=== PATIENT | male | born 1970 | race Caucasian/White ===

== ENCOUNTER 2016-08-27 08:37 | Emergency (ER) | payer OTHER ==
[~2016-08-27] VITALS: Ht 170.2 cm; Wt 91.0 kg
[~2016-08-27 08:37] MED LIST: ESOM20CA PO
[2016-08-27 08:50] VITALS: TEMP 36.5; Ht 170.2 cm; Wt 91.0 kg
[2016-08-27] MEDS ORDERED: KETOROLAC TROMETHAMINE 60 MG/2 ML VIAL IM STA (08:54)
[2016-08-27] MEDS ORDERED: HYDROmorphone INJ 2 MG/ML SYR/VIAL IM STA ×2 (08:54→10:19)
--- NOTE | 2016-08-27 09:02 | EMERGENCY ROOM VISIT NOTE ---
History Report prepared by Sudheer: Rose Roland Under the Supervision of: Dr. Aurelio Knight M.D. First contact with patient: 08:46 Chief Complaint: CHEST PAIN Stated Complaint: CHEST PAINS, STERNUM IS ACTING UP AGAIN History of Present Illness The patient is a 45 year old male who presents to the Emergency Room with complaints of persistent sternal pain that began prior to arrival. Per the patient's , the patient has a history of a detached sternum. The patient states that he had lifted something too heavy 20 years ago which caused the detachment. The patient's states that the patient received a Cortizone shot to the area in the past. The patient states that he has this problem every six months. He states that he has taken ibuprofen and Tylenol for his discomfort without relief of his symptoms. The patient states that he lifted heavy tires on Friday which worsened his discomfort. He additionally notes increased pain with palpation over the sternum. Source of History: patient, spouse/significant other () Onset: prior to arrival Position: other (sternum) Timing: other (persistent) Modifying Factors (Worsening): other (palpation, heavy lifting) Review of Systems See HPI for pertinent positives & negatives. A total of 10 systems reviewed and were otherwise negative. Past Medical & Surgical Medical Problems: (1) No active medical problems Family History Cancer Diabetes mellitus Gallbladder disease Social History Smoking Status: Never Smoker Smokeless Tobacco Use: No Alcohol Use: occasionally Marital Status: Housing Status: lives with family Occupation Status: employed Current/Historical Medications Scheduled Esomeprazole Magnesium (Nexium), 20 MG PO BID Ibuprofen (Advil), 400 MG PO DAILY Scheduled PRN Oxycodone/Acetaminophen 5MG/325MG (Percocet 5MG/325MG), 1-2 TAB PO Q4H PRN for Pain Allergies Coded Allergies: Penicillins (Unverified Allergy, Mild, GI UPSET AND RASH, 08/27/16) Aspirin (Verified Allergy, Unknown, GI UPSET, 08/27/16) Codeine (Verified Allergy, Unknown, GI UPSET, 08/27/16) Physical Exam Vital Signs Date Time Temp Pulse Resp B/P Pulse Ox O2 Delivery O2 Flow Rate FiO2 08/27/16 11:12 57 15 94 08/27/16 11:01 124/92 08/27/16 10:42 47 16 95 08/27/16 10:37 55 91 08/27/16 10:30 106/83 08/27/16 10:27 127/91 08/27/16 10:07 53 91 08/27/16 10:00 127/91 08/27/16 09:55 128/95 08/27/16 09:37 49 19 128/95 95 08/27/16 08:57 53 08/27/16 08:50 36.5 56 19 145/97 98 Room Air 08/27/16 08:46 98 Room Air Physical Exam GENERAL: Patient is a healthy-appearing well-nourished HEAD: Normocephalic atraumatic EYES: Ocular movements intact pupils equal and react to light OROPHARYNX mucous membranes are moist no exudates present no erythema or edema present NECK: Supple no nuchal rigidity CHEST WALL: Exquisitely tender to the mid chest area at the sternum. CHEST: Good equal expansion LUNGS: Clear and equal to auscultation CARDIAC: Normal S1 and S2 ABDOMEN: Soft nontender no guarding BACK: No CVA tenderness EXTREMITIES: No pain upon palpation normal muscle strength in all groups no clubbing cyanosis or edema NEURO: Patient is following commands is answering questions appropriately. Alert and oriented x3 Cranial Nerves 2-12 grossly intact Medical Decision & Procedures ER Provider Diagnostic Interpretation: X-ray results as stated below per interpretation by me and the radiologist: CHEST ONE VIEW PORTABLE CLINICAL HISTORY: Chest pain localized to the xiphoid region. COMPARISON STUDY: 04/15/2011 FINDINGS: The heart is mildly enlarged. There is no failure. There is no focal pulmonary consolidation. There is a linear left basilar atelectasis/scarring. There are no pleural effusions.[ IMPRESSION: No active disease in the chest. Electronically signed by: Suraj Jara M.D. 08/27/2016 9:04 AM Dictated Date/Time: 08/27/2016 9:04 AM Medications Administered Medications (Trade) Dose Ordered Sig/Sandra Route Start Time Stop Time Status Last Admin Dose Admin Hydromorphone HCl (Dilaudid Inj) 2 mg NOW STAT IM 08/27/16 08:54 08/27/16 08:55 DC 08/27/16 09:06 2 MG Ketorolac Tromethamine (Toradol Inj) 60 mg NOW STAT IM 08/27/16 08:54 08/27/16 08:55 DC 08/27/16 09:06 60 MG Promethazine HCl (Phenergan Inj) 25 mg NOW STAT IM 08/27/16 10:19 08/27/16 10:20 DC 08/27/16 10:39 25 MG Hydromorphone HCl (Dilaudid Inj) 1 mg NOW STAT IM 08/27/16 10:34 08/27/16 10:35 DC 08/27/16 10:39 1 MG ED Course 0848: Past medical records reviewed. The patient was evaluated in room B2. A complete history and physical examination was performed. 0854: Ordered Toradol Inj 60 mg IM, Dilaudid Inj 2 mg IM. 1017: I reevaluated the patient and he is still experiencing pain. 1019: Ordered Phenergan Inj 25 mg IM. 1034: Ordered Dilaudid Inj 1 mg IM. 1100: I reevaluated the patient and he is resting comfortably. I discussed all the exam findings with him and I discussed the treatment plan. He verbalized complete understanding and agreement. He is ready to go home. Medical Decision Differential diagnosis include: Chest wall pain, rib fracture This is a 45-year-old male who presents emergency department complaining of chest wall pain. 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 The patient reaggravated this injury over the weekend by moving furniture. For this reason he is requesting pain medication. He was given IM Dilaudid as well as Toradol and then an additional dose of IM Dilaudid. Repeat examination revealed improvement patient's symptoms. I stressed the need for follow-up with pain management however he was given a temporary Percocet supply. Patient was in agreement with the treatment plan. Impression Primary Impression: Anterior chest wall pain Scribe Attestation The scribe's documentation has been prepared under my direction and personally reviewed by me in its entirety. I confirm that the note above accurately reflects all work, treatment, procedures, and medical decision making performed by me. Departure Information Dispostion Home / Self-Care Prescriptions Oxycodone/Acetaminophen 5MG/325MG (PERCOCET 5MG/325MG) Tab 1-2 TAB PO Q4H Y for Pain, #14 TAB Prov: Aurelio Knight MD 08/27/16 Referrals Rodrigo Lynch M.D. (PCP) Forms IMPORTANT VISIT INFORMATION, School Instructions, Work Instructions Patient Instructions ED Strain Chest Wall, Incentive Spirometer Dc, My [facility] Additional Instructions You received narcotic or benzodiazepene medication while in the emergency room today. Do not drive, operate heavy machinery, or drink alcohol under the influence of this medication. Take 600 mg Ibuprofen every 6 hours Take Percocet for breakthrough pain You have been examined and treated today on an emergency basis only. This is not a substitute for, or an effort to provide, complete comprehensive medical care. It is impossible to recognize and treat all injuries or illnesses in a single emergency department visit. It is therefore important that you follow up closely with Dr Lynch. Call as soon as possible for an appointment. Thank you for your time and consideration. I look forward to speaking with you again soon. Please don't hesitate to call us if you have any questions.
--- NOTE | 2016-08-27 09:07 | DIAGNOSTIC IMAGING REPORT ---
CHEST ONE VIEW PORTABLE CLINICAL HISTORY: Chest pain localized to the xiphoid region. COMPARISON STUDY: 04/15/2011 FINDINGS: The heart is mildly enlarged. There is no failure. There is no focal pulmonary consolidation. There is a linear left basilar atelectasis/scarring. There are no pleural effusions.[ IMPRESSION: No active disease in the chest. Electronically signed by: Suraj Jara M.D. 08/27/2016 9:04 AM Dictated Date/Time: 08/27/2016 9:04 AM
[2016-08-27] MEDS ORDERED: IBUP-1050 PO (09:14)
[2016-08-27] MEDS ORDERED: PROMETHAZINE HCL INJ 25 MG/ML 1 ML VIAL IM STA (10:19)
[2016-08-27] MEDS ORDERED: HYDROmorphone INJ 1 MG/ML SYR IM STA (10:34)
[2016-08-27 11:01] VITALS: BP 124/92
[2016-08-27] MEDS ORDERED: OXYC-57 PO (11:08)
[2016-08-27 11:12] VITALS: PULSE 57; O2SAT 94
--- NOTE | 2016-08-27 12:10 | Pharmacy Progress Note ---
ED Pharmacist Progress Note Date of Service: Aug 27, 2016. Background Outpatient pharmacy called requesting clarification on Percocet order - they had morphine allergy listed. Assessment Med rec tech at [facility] updated allergies during this visit. Morphine allergy not listed, but patient has GI upset to codeine. Patient has received one dose of Percocet in 2010 and was also sent home with a home pack at that time. Plan Outpatient pharmacy plans to clarify reaction to morphine with patient - will call back if need be OK to fill Percocet as prescribed, pending patient's report of morphine allergy. Case discussed w Dr. Knight.
[2016-10-30] MEDS ORDERED: ZNTT/150 PO (08:23)
[2016-12-12] MEDS ORDERED: PANT40TA PO (08:23)
== END 2016-08-27 11:47 | disposition home or self-care (01) ==
LOC: C.EDB 08:38
DX: R07.89 Other chest pain (principal); Z83.3 Family history of diabetes mellitus

== ENCOUNTER → 2016-10-25 | Outpatient (CLI) | payer OTHER ==
[~2016-10-25] MED LIST changes: +ACET-1256 PO; +DICY10CA55 PO; +IBUP-1050 PO; +OXYC-57 PO; +PANT40TA PO; +PPTBS PO; +ZNTT/150 PO
[2016-10-25 12:21] LABS: BASO % 0.2 %; BASO ABS # 0.01 K/uL (0-0.2); COMPLETE YES; EOS % 4.4 %; HEMATOCRIT 43.1 % (42-52); IG% 0.2 %; LYMPH % 19.8 %; MEAN CELL VOLUME 93.9 fL (80-100); MEAN CORPUSCULAR HEMOGLOBIN 33.1 pg (25-34); MEAN CORPUSCULAR HGB CONC 35.3 g/dl (32-36); MEAN PLATELET VOLUME 10.7 fL (7.4-10.4); MONO % 10.4 %; PLATELET COUNT 157 K/uL (130-400); RED BLOOD COUNT 4.59 M/uL (4.7-6.1); WHITE BLOOD COUNT 4.05 K/uL (4.8-10.8)
[2016-10-25 13:06] LABS: ALT/SGPT 56 U/L (12-78); BLOOD UREA NITROGEN 15 mg/dl (7-18); BUN/CREATININE RATIO 14.8 (10-20); CARBON DIOXIDE 26 mmol/L (21-32); CHLORIDE 105 mmol/L (98-107); GLUCOSE 98 mg/dl (70-99); POTASSIUM 4.2 mmol/L (3.5-5.1); SODIUM 139 mmol/L (136-145)
[2016-10-25 13:16] LABS: ALB/GLOB RATIO 1.2 (0.9-2); ALKALINE PHOSPHATASE 73 U/L (45-117); AST/SGOT 31 U/L (15-37)
== END | disposition home or self-care (01) ==
LOC: C.LABBFT 10:28
PROVIDERS: ATTEND Physician Assistant Medical
DX: K21.9 Gastro-esophageal reflux disease without esophagitis (principal)

== ENCOUNTER → 2016-11-04 | Day surgery (SDC) | payer OTHER ==
[2016-10-30 08:23] VITALS: Ht 170.2 cm; Wt 92.7 kg
[~2016-11-04] VITALS: Ht 170.2 cm; Wt 92.7 kg
[~2016-11-04] MED LIST changes: -ESOM20CA PO; +FENTANYL CITRATE INJ 50 MCG/1 ML 2 ML VIAL ONE; -IBUP-1050 PO; +LIDOCAINE HCL 2% 2 ML VIAL (20MG/ML) ONE; -OXYC-57 PO; +PROPOFOL IV EMULSION 10 MG/ML 20 ML VIAL IV ONE; +SODIUM CHLORIDE 0.9% 500ML 500 ML IV ONE
--- NOTE | 2016-11-04 14:31 | Endo History and Physical ---
History & Physical Date of Service: Nov 04, 2016. Chief Complaint: GERD, dysphagia Referring Physician: Dr. Rodrigo Lynch History of Present Illness 46 yo CM who presents for EGD secondary to GERD and dysphagia. Past Surgical History Hx Cardiac Surgery: No Hx Internal Defibrillator: No Hx Pacemaker: No Hx Abdominal Surgery: No Hx Post-Op Nausea and Vomiting: No Hx Cancer Surgery: No Hx Thoracic Surgery: No Hx Orthopedic: Yes (RT FOOT SX (HARDWARE), RT HAND REPAIR (CRUSHING INJURY)) Hx Urinary Tract Surgery: No Family History Colon CA Social History Smoking Status: Never Smoker Hx Substance Use: No Hx Alcohol Use: Yes (6 PACK DAILY) Allergies Coded Allergies: Penicillins (Verified Allergy, Mild, GI UPSET AND RASH, 11/04/16) Aspirin (Verified Allergy, Unknown, GI UPSET, 10/30/16) Codeine (Verified Allergy, Unknown, GI UPSET, 10/30/16) Current Medications Reported Home Medications Medications Dose Route/Sig Max Daily Dose Days Date Category Protonix (Pantoprazole Sodium) 40 Mg Tab 40 Mg PO QAM 10/30/16 Reported Zantac (Ranitidine HCl) 150 Mg Tab 150 Mg PO BID 10/30/16 Reported Vital Signs Weight (Kilograms): 92.73 Height (Feet): 5 Height (Inches): 7 Date Time Temp Pulse Resp B/P (MAP) Pulse Ox O2 Delivery O2 Flow Rate FiO2 11/04/16 14:07 36.6 61 18 131/83 (99) 95 Room Air Physical Exam General Appearance: WD/WN, no apparent distress Respiratory/Chest: Auscultation: breath sounds normal Cardiovascular: Heart Auscultation: RRR Abdomen: Bowel Sounds: normal Inspection & Palpation: soft, non-distended, no tenderness, guarding & rebound Assessment and Plan Assessment: 46 yo CM who presents for EGD secondary to GERD and dysphagia. Plan: Proceed with EGD.
--- NOTE | 2016-11-04 14:53 | Anesthesiology Progress Note ---
Anesthesia Post Op Note Date & Time Nov 04, 2016 at 14:53 Vital Signs Pain Intensity: 4 Vital Signs Past 12 Hours Date Time Temp Pulse Resp B/P (MAP) Pulse Ox O2 Delivery O2 Flow Rate FiO2 11/04/16 14:46 78 14 126/86 (99) 93 Room Air 11/04/16 14:07 36.6 61 18 131/83 (99) 95 Room Air Notes Mental Status: alert / awake / arousable, participated in evaluation Pt Amnestic to Procedure: Yes Nausea / Vomiting: adequately controlled Pain: adequately controlled Airway Patency, RR, SpO2: stable & adequate BP & HR: stable & adequate Hydration State: stable & adequate Anesthetic Complications: no major complications apparent
--- NOTE | 2016-11-04 14:55 | Discharge Instructions ---
Endoscopy Patient Instructions Date / Procedure(s) Performed Nov 04, 2016. EGD Allergy Information Coded Allergies: Penicillins (Verified Allergy, Mild, GI UPSET AND RASH, 11/04/16) Aspirin (Verified Allergy, Unknown, GI UPSET, 10/30/16) Codeine (Verified Allergy, Unknown, GI UPSET, 10/30/16) Discharge Date / Findings Nov 04, 2016. Gastritis s/p biopsies Mid-esophageal biopsies Medication Instructions OK to resume all medications today as prescribed Reported Home Medications Medications Dose Route/Sig Max Daily Dose Days Date Category Protonix (Pantoprazole Sodium) 40 Mg Tab 40 Mg PO QAM 10/30/16 Reported Zantac (Ranitidine HCl) 150 Mg Tab 150 Mg PO BID 10/30/16 Reported Provider Instructions Activity Restrictions - No exercising or heavy lifting for 24 hours. - Do not drink alcohol the day of the procedure. - Do not drive a car or operate machinery until the day after the procedure. - Do not make any important decisions or sign important papers in 24 hours after the procedure. Following Day: - Return to full activity which may include returning to work/school. Diet Start your diet with liquids and light foods (jello, soup, juice, toast). Then eat your usual diet if not nauseated. Treatment For Common After Affects For mild abdominal pain, bloating, or excessive gas: - Rest - Eat lightly - Lie on right side Follow-Up Information Follow-up with Dr. Rodrigo Lynch as scheduled Anesthesia Information What You Should Know You have had a procedure that required some medicine to reduce anxiety and discomfort. This treatment is called moderate sedation. After receiving the treatment, you may be sleepy, but you will be able to breathe on your own. The effects of the treatment may last for several hours. Follow these instructions along with Activity/Diet recommendations noted above: * Do NOT do anything where dizziness or clumsiness would be dangerous. * Rest quietly at home today, then you can be up and about tomorrow. * Have a responsible person stay with you the rest of today. * You may have had an I.V. today. If so, you may take the dressing off later today. Recommendations Call your doctor if: * Trouble breathing * Continuous vomiting for more than 24 hours * Temperature above 101 degrees * Severe abdominal pain or bloating * Pain not relieved by pain medicine ordered * There is increased drainage or redness from any incision * A large amount of rectal bleeding greater than 2-3 tablespoons. (If you had a polyp/s removed or have hemorrhoids, a small amount of blood - from the rectum is to be expected.) * You have any unanswered questions or concerns. IN THE EVENT OF A SERIOUS EMERGENCY, GO TO THE NEAREST EMERGENCY ROOM Your discharge instructions were prepared by provider Dallin Ward. Patient Instructions Signature Page Cuco Grossman Patient (or Guardian) Signature/Date: I have read and understand the instructions given to me by my caregivers. Caregiver/RN/Doctor Signature/Date: The above-named patient and/or guardian has received patient instructions on this date. + Original Patient Signature Page (only) stays with chart. Please make copy for patient.
--- NOTE | 2016-11-04 15:02 | GI REPORT ---
Procedure Date: 11/04/2016 2:25 PM Procedure: Upper GI endoscopy Indications: Dysphagia, Gastro-esophageal reflux disease Medicines: Monitored Anesthesia Care Complications: No immediate complications. Estimated Blood Loss: Estimated blood loss: none. Procedure: Pre-Anesthesia Assessment: - Prior to the procedure, a History and Physical was performed, and patient medications and allergies were reviewed. The patient's tolerance of previous anesthesia was also reviewed. The risks and benefits of the procedure and the sedation options and risks were discussed with the patient. All questions were answered, and informed consent was obtained. Prior Anticoagulants: The patient has taken no previous anticoagulant or antiplatelet agents. ASA Grade Assessment: II - A patient with mild systemic disease. After reviewing the risks and benefits, the patient was deemed in satisfactory condition to undergo the procedure. After obtaining informed consent, the endoscope was passed under direct vision. Throughout the procedure, the patient's blood pressure, pulse, and oxygen saturations were monitored continuously. The scope was introduced through the mouth, and advanced to the second part of duodenum. The upper GI endoscopy was accomplished without difficulty. The patient tolerated the procedure well. Findings: Mucosal changes including ringed esophagus and longitudinal furrows were found in the upper third of the esophagus and in the middle third of the esophagus. Biopsies were taken with a cold forceps for histology. Localized moderate inflammation characterized by erythema was found in the gastric antrum. Biopsies were taken with a cold forceps for histology. The examined duodenum was normal. Impression: - Esophageal mucosal changes suspicious for eosinophilic esophagitis. Biopsied. - Gastritis. Biopsied. - Normal examined duodenum. Recommendation: - Resume previous diet. - Continue present medications. - Await pathology results. - Return to primary care physician as previously scheduled. Dallin Ward, 11/04/2016 3:01:02 PM This report has been signed electronically. Note Initiated On: 11/04/2016 2:25 PM I attest to the content of the Intraoperative Record and orders documented therein, exceptions below
[2016-11-04 15:16] VITALS: BP 130/82; PULSE 52; O2SAT 94
== END | disposition home or self-care (01) ==
LOC: C.GI 12:38
PROVIDERS: ATTEND Internal Medicine
DX: K20.0 Eosinophilic esophagitis (principal); K21.9 Gastro-esophageal reflux disease without esophagitis; Z80.0 Family history of malignant neoplasm of digestive organs; Z79.899 Other long term (current) drug therapy

== ENCOUNTER 2016-12-12 21:38 | Emergency (ER) | payer OTHER ==
[~2016-12-12] VITALS: Ht 172.7 cm; Wt 90.2 kg
[~2016-12-12 21:38] MED LIST changes: -ACET-1256 PO; -DICY10CA55 PO; -FENTANYL CITRATE INJ 50 MCG/1 ML 2 ML VIAL ONE; -LIDOCAINE HCL 2% 2 ML VIAL (20MG/ML) ONE; -PPTBS PO; -PROPOFOL IV EMULSION 10 MG/ML 20 ML VIAL IV ONE; -SODIUM CHLORIDE 0.9% 500ML 500 ML IV ONE
[2016-12-12 21:42] VITALS: TEMP 36.4; Ht 172.7 cm; Wt 90.2 kg
[2016-12-12] MEDS ORDERED: SODIUM CHLORIDE 0.9% 1000ML 1,000 ML IV STA ×2 (21:59)
[2016-12-12] MEDS ORDERED: ONDANSETRON INJ 2 MG/ML 2 ML VIAL IV STA (21:59)
[2016-12-12] MEDS ORDERED: DICYCLOMINE HCL 10 MG/ML 2 ML AMP IM ONE (22:00)
[2016-12-12] MEDS ORDERED: OPTIRAY 320 IV PRN (22:15)
[2016-12-12 22:21] VITALS: O2SAT 94
[2016-12-12 22:25] LABS: BASO % 0.2 %; BASO ABS # 0.01 K/uL (0-0.2); COMPLETE YES; EOS % 1.5 %; HEMATOCRIT 44.3 % (42-52); IG% 0.2 %; LYMPH ABS # 0.62 K/uL (1.2-3.4); MEAN CELL VOLUME 92.1 fL (80-100); MEAN CORPUSCULAR HEMOGLOBIN 31.8 pg (25-34); MEAN CORPUSCULAR HGB CONC 34.5 g/dl (32-36); MEAN PLATELET VOLUME 10.6 fL (7.4-10.4); MONO % 11.9 %; NEUT % 71.2 %; PLATELET COUNT 125 K/uL (130-400); RED BLOOD COUNT 4.81 M/uL (4.7-6.1); WHITE BLOOD COUNT 4.13 K/uL (4.8-10.8)
--- NOTE | 2016-12-12 22:37 | DIAGNOSTIC IMAGING REPORT ---
CHEST ONE VIEW PORTABLE CLINICAL HISTORY: CHEST PAIN dyspnea COMPARISON STUDY: 08/27/2016 FINDINGS: Minimal left retrocardiac infiltrate. Mild stable cardiomegaly. Lungs otherwise appear clear. Plate like atelectasis left base unchanged IMPRESSION: Small parenchymal infiltrate medial left base The above report was generated using voice recognition software. It may contain grammatical, syntax or spelling errors. Electronically signed by: Jhonny Lerma M.D. 12/12/2016 10:36 PM Dictated Date/Time: 12/12/2016 10:35 PM
[2016-12-12 22:51] LABS: ALT/SGPT 64 U/L (12-78); BLOOD UREA NITROGEN 14 mg/dl (7-18); BUN/CREATININE RATIO 12.7 (10-20); CARBON DIOXIDE 27 mmol/L (21-32); CHLORIDE 106 mmol/L (98-107); GLUCOSE 98 mg/dl (70-99); MAGNESIUM 2.2 mg/dl (1.8-2.4); POTASSIUM 3.4 mmol/L (3.5-5.1); SODIUM 139 mmol/L (136-145)
[2016-12-12 22:56] LABS: ALKALINE PHOSPHATASE 83 U/L (45-117); AST/SGOT 43 U/L (15-37)
[2016-12-12] MEDS ORDERED: ACET-1256 PO (22:57)
[2016-12-12] MEDS ORDERED: PPTBS PO (22:57)
[2016-12-12] MEDS ORDERED: ALUMINUM/MAGNESIUM SUSP 30 ML UDC PO STA (23:47)
[2016-12-12] MEDS ORDERED: LIDOCAINE HCL 2% VISC SOLN 20 ML UDC PO STA (23:47)
[2016-12-12 23:53] LABS: URINE APPEARANCE CLEAR (CLEAR); URINE COLOR DK YELLOW; URINE NITRITE NEG (NEG); URINE PH 5.5 (4.5-7.5); URINE SPECIFIC GRAVITY 1.037 (1.000-1.030); UROBILINOGEN NEG (NEG); ZZUR CULT IF INDIC CLEAN CATCH NO
[2016-12-12 23:57] LABS: MANUAL MICROSCOPIC REQUIRED? NO; REVIEW REQ? NO; URINE BILIRUBIN NEG (NEG)
[2016-12-13] MEDS ORDERED: POTASSIUM CHLORIDE 10 MEQ TABCR PO STA (00:57)
[2016-12-13] MEDS ORDERED: BENTYL HOME PACK 10 MG VIAL PO ONE (01:00)
[2016-12-13] MEDS ORDERED: ONDANSETRON HOME PACK 4MG OD TAB PO ONE (01:00)
[2016-12-13] MEDS ORDERED: DICY10CA55 PO (01:06)
[2016-12-13 01:29] VITALS: BP 128/92; PULSE 60; O2SAT 93
--- NOTE | 2016-12-13 04:40 | EMERGENCY ROOM VISIT NOTE ---
History First contact with patient: 21:53 Chief Complaint: ABDOMINAL PAIN Stated Complaint: HEADACHE, BELLY IN KNOTS, DIARRHEA Nursing Triage Summary: pt c/o generalized and lower abd pain x3 days. states it is sharp/aching. associates diarrhea and nausea. denies urinary symptoms. pt has a hx of acid reflux. pt alert and oriented x4. breathing WNL. History of Present Illness The patient is a 46 year old male who presents to the Emergency Room with complaints of nausea, vomiting, diarrhea and abdominal cramping for the past 2 days. No well water. No recent antibiotics. No recent travel. No colonoscopy. Patient complains of several episodes of vomiting and diarrhea is nonbloody nonbilious non-black and tarry nonbloody in nature. Patient drinks a sixpack of beer a night. No history of DTs or seizures from not drinking. Patient complains of epigastric discomfort. Patient denies chest pain, dyspnea , fever, chills, back pain, urinary symptoms. No sick contacts. Review of Systems See HPI for pertinent positives & negatives. A total of 10 systems reviewed and were otherwise negative. Past Medical/Surgical History Medical Problems: (1) No active medical problems GERD Family History Cancer Diabetes mellitus Gallbladder disease Social History Smoking Status: Never Smoker Alcohol Use: heavy Marital Status: Housing Status: lives with family Occupation Status: employed Current/Historical Medications Scheduled Acetaminophen (Tylenol), 1,000 MG PO PRN UD Bismuth Subsalicylate (Pepto-Bismol Susp), 1 DOSE PO PRN Dicyclomine Hcl (Bentyl), 10 MG PO Q6 Pantoprazole (Protonix), 40 MG PO BID Allergies Coded Allergies: Penicillins (Verified Allergy, Mild, GI UPSET AND RASH, 11/04/16) Aspirin (Verified Allergy, Unknown, GI UPSET, 10/30/16) Codeine (Verified Allergy, Unknown, GI UPSET, 10/30/16) Physical Exam Vital Signs Date Time Temp Pulse Resp B/P (MAP) Pulse Ox O2 Delivery O2 Flow Rate FiO2 12/13/16 01:29 60 18 128/92 93 12/13/16 00:10 65 18 131/87 95 Room Air 12/12/16 23:16 62 18 125/93 94 Room Air 12/12/16 22:34 59 12/12/16 22:21 94 Room Air 12/12/16 22:21 94 Room Air 12/12/16 21:42 36.4 91 16 134/95 93 Room Air Pain Rating (0-10): 4.0 Physical Exam VITALS: Vitals are noted on the nurse's note and reviewed by myself. Vital signs stable. GENERAL: Pleasant male, in no acute distress, nondiaphoretic, well-developed well-nourished. SKIN: The skin was without rashes, erythema, edema, or bruising. There is no tenting of the skin. Capillary reflex less than 2 seconds. HEAD: Normocephalic atraumatic. EARS: External auditory canals clear, tympanic membranes pearly mendez without erythema or effusion bilaterally. EYES: Pupils equal round and reactive to light and accommodation. Conjunctivae without injection, sclerae without icterus. Extraocular movements intact. NOSE: Patent, turbinates without inflammation or discharge. No sinus tenderness. MOUTH: Mucous membranes mildly dry. Pharynx without erythema or exudate. Uvula midline. Airway patent. Tongue does not deviate. NECK: Supple without nuchal rigidity. No lymphadenopathy. No thyromegaly. Cervical spine is nontender. No JVD. HEART: Regular rate and rhythm without murmurs gallops or rubs. LUNGS: Clear to auscultation bilaterally without wheezes, rales or rhonchi. No dullness to percussion. No retractions or accessory muscle use. ABDOMEN: Positive bowel sounds x 4. Normal tympanic percussion. Soft, tender to palpation epigastric region, without masses or organomegaly. Cerrato sign negative. No guarding or rebound tenderness. No CVA tenderness MUSCULOSKELETAL: No muscle atrophy, erythema, or edema noted. NEURO: Patient was alert and oriented to person place and time. Normal sensation to light and sharp touch. No focal neurological deficits. Medical Decision & Procedures Laboratory Results 12/12/16 22:10 Red Blood Count 4.81, Mean Corpuscular Volume 92.1, Mean Corpuscular Hemoglobin 31.8, Mean Corpuscular Hemoglobin Concent 34.5, Mean Platelet Volume 10.6, Neutrophils (%) (Auto) 71.2, Lymphocytes (%) (Auto) 15.0, Monocytes (%) (Auto) 11.9, Eosinophils (%) (Auto) 1.5, Basophils (%) (Auto) 0.2, Neutrophils # (Auto ) 2.94, Lymphocytes # (Auto) 0.62, Monocytes # (Auto) 0.49, Eosinophils # (Auto ) 0.06, Basophils # (Auto) 0.01 12/12/16 22:10 Test 12/12/16 22:10 12/12/16 22:18 12/12/16 22:19 12/12/16 23:11 White Blood Count 4.13 K/uL (4.8-10.8) Red Blood Count 4.81 M/uL (4.7-6.1) Hemoglobin 15.3 g/dL (14.0-18.0) Hematocrit 44.3 % (42-52) Mean Corpuscular Volume 92.1 fL (80-100) Mean Corpuscular Hemoglobin 31.8 pg (25-34) Mean Corpuscular Hemoglobin Concent 34.5 g/dl (32-36) Platelet Count 125 K/uL (130-400) Mean Platelet Volume 10.6 fL (7.4-10.4) Neutrophils (%) (Auto) 71.2 % Lymphocytes (%) (Auto) 15.0 % Monocytes (%) (Auto) 11.9 % Eosinophils (%) (Auto) 1.5 % Basophils (%) (Auto) 0.2 % Neutrophils # (Auto) 2.94 K/uL (1.4-6.5) Lymphocytes # (Auto) 0.62 K/uL (1.2-3.4) Monocytes # (Auto) 0.49 K/uL (0.11-0.59) Eosinophils # (Auto) 0.06 K/uL (0-0.5) Basophils # (Auto) 0.01 K/uL (0-0.2) RDW Standard Deviation 42.6 fL (36.4-46.3) RDW Coefficient of Variation 12.6 % (11.5-14.5) Immature Granulocyte % (Auto) 0.2 % Immature Granulocyte # (Auto) 0.01 K/uL (0.00-0.02) Anion Gap 6.0 mmol/L (3-11) Est Creatinine Clear Calc Drug Dose 90.5 ml/min Estimated GFR () 92.2 Estimated GFR (Non- 79.5 BUN/Creatinine Ratio 12.7 (10-20) Calcium Level 9.0 mg/dl (8.5-10.1) Magnesium Level 2.2 mg/dl (1.8-2.4) Total Bilirubin 0.4 mg/dl (0.2-1) Direct Bilirubin 0.1 mg/dl (0-0.2) Aspartate Amino Transf (AST/SGOT) 43 U/L (15-37) Alanine Aminotransferase (ALT/SGPT) 64 U/L (12-78) Alkaline Phosphatase 83 U/L (45-117) Troponin I < 0.015 ng/ml (0-0.045) Total Protein 7.6 gm/dl (6.4-8.2) Albumin 3.5 gm/dl (3.4-5.0) Lipase 270 U/L (73-393) Bedside Troponin I < 0.030 ng/ml (0-0.045) Bedside Lactic Acid Venous 0.75 mmol/L (0.90-1.70) Urine Color DK YELLOW Urine Appearance CLEAR (CLEAR) Urine pH 5.5 (4.5-7.5) Urine Specific [place] 1.037 (1.000-1.030) Urine Protein 1+ (NEG) Urine Glucose (UA) NEG (NEG) Urine Ketones TRACE (NEG) Urine Occult Blood NEG (NEG) Urine Nitrite NEG (NEG) Urine Bilirubin NEG (NEG) Urine Urobilinogen NEG (NEG) Urine Leukocyte Esterase NEG (NEG) Urine WBC (Auto) 1-5 /hpf (0-5) Urine RBC (Auto) 0-4 /hpf (0-4) Urine Hyaline Casts (Auto) 1-5 /lpf (0-5) Urine Epithelial Cells (Auto) 5-10 /lpf (0-5) Urine Bacteria (Auto) NEG (NEG) Date/Time Source Procedure Growth Status 12/12/16 23:11 Stool C.difficile Toxin B Gene (PCR) - Final No C. difficile toxin B gene detected Complete Medications Administered Medications (Trade) Dose Ordered Sig/Sandra Route Start Time Stop Time Status Last Admin Dose Admin Sodium Chloride 1,000 ml @ 999 mls/hr Q1H1M STAT IV 12/12/16 21:59 12/12/16 22:59 DC 12/12/16 22:23 999 MLS/HR Sodium Chloride 1,000 ml @ 125 mls/hr Q8H STAT IV 12/12/16 21:59 12/13/16 02:32 DC 12/12/16 22:21 125 MLS/HR Ondansetron HCl (Zofran Inj) 4 mg NOW STAT IV 12/12/16 21:59 12/12/16 22:02 DC 12/12/16 22:23 4 MG Dicyclomine HCl (Bentyl Inj) 20 mg NOW ONCE IM 12/12/16 22:00 12/12/16 22:02 DC 12/12/16 22:25 20 MG Lidocaine HCl (Viscous Lidocaine 2% Soln) 10 ml NOW STAT PO 12/12/16 23:47 12/12/16 23:48 DC 12/13/16 00:06 10 ML Al Hydroxide/Mg Hydroxide (Maalox Susp) 30 ml NOW STAT PO 12/12/16 23:47 12/12/16 23:48 DC 12/13/16 00:07 30 ML Potassium Chloride (Klor-Con M10) 10 meq NOW STAT PO 12/13/16 00:57 12/13/16 00:58 DC 12/13/16 01:17 10 MEQ Dicyclomine HCl (Dicyclomine HCl 10MG Home Pack) 1 ea UD ONCE PO 12/13/16 01:00 12/13/16 01:01 DC 12/13/16 01:16 1 EA Ondansetron HCl (ZOFRAN ODT 4MG Home Pack) 1 homepack UD ONCE PO 12/13/16 01:00 12/13/16 01:01 DC 12/13/16 01:17 1 HOMEPACK ED Course Prior records/ancillary studies reviewed. Triage Nursing notes reviewed. Additional history obtained from the family. The patient's history was concerning for nausea, vomiting, diarrhea, and abdominal pain. Differential diagnosis: Etiologies such as gastroenteritis, food borne illness, infections, appendicitis , diverticulitis, inflammatory bowel disease, obstruction, GI bleed, biliary pathology, as well as others were entertained. Physical examination findings: As above. Abdominal examination revealed epigastric discomfort. Vital signs reviewed and revealed stable. ER treatment provided: IV hydration 1 L NSS. Bentyl, Zofran, GI cocktail, IV fluids On reassessment the patient felt better. Patient was tolerating p.o. intake. Diagnostics interpretation by me: The labs revealed stool culture pending. Negative C. difficile, negative troponin Imaging studies: Chest x-ray was reviewed and read by radiology. Patient is no symptoms of pneumonia. This most likely is atelectasis CT ABDOMEN & PELVIS: Dependent and bibasilar atelectasis. Fatty infiltration of the liver. Normal appendix. No bowel obstruction or definite inflammation. The descending colon and transverse colon aponte are accentuated by underdistention, but element of mild colitis cannot be entirely excluded. Small fat-containing bilateral inguinal hernias. Decompressed bladder. Radiologist: Desmond Stanley M.D. This appears to be consistent with vomiting and diarrhea mostly viral in etiology. Patient felt much better after being medicated as above. He was Tolerating fluids. His symptoms had resolved. He was advised to a clear liquid diet today and then progress as tolerated to bland diet tomorrow. He is advised follow-up family care in a few days or here in the ER sooner for abdominal pain, fevers, vomiting, worsening signs or symptoms or as needed. By the evaluation outlined above emergent etiologies such as appendicitis, diverticulitis, obstruction, cardiac sources, mesenteric ischemia, aortic pathology, inflammatory bowel disease, renal colic, PUD, biliary pathology, UTI , as well as others were deemed relatively unlikely. The pt informed about the findings as listed above. All questions were answered and pleased with the treatment. Return instructions were outlined and the patient was discharged in stable condition. Outpatient prescription management: navid graham Referral: The patient was referred to their primary care physician for follow-up in 2 to 3 days for a recheck of the current condition. Case reviewed with my attending. Medical Decision As above Impression Primary Impression: Abdominal discomfort, epigastric Additional Impression: Nausea vomiting and diarrhea Departure Information Dispostion Home / Self-Care Condition GOOD Prescriptions Dicyclomine Hcl (BENTYL) 10 Mg Cap 10 MG PO Q6, #10 CAP Prov: Karol Sol ., OLIVIER 12/13/16 Forms Call Back Authorization, HOME CARE DOCUMENTATION FORM, School Instructions, Work Instructions, Additional Instructions: no work 12/11-12/15/16 IMPORTANT VISIT INFORMATION Patient Instructions Vomit Diarrhea Self Care, [facility], ED Diet [place] Additional Instructions DO NOT drive, drink alcohol, operate machinery, or perform dangerous activities today. You were given medications in the ER that can affect your ability to safely function or operate a vehicle. Bentyl tablets 10mg: Take one every six hours as needed for abdominal cramping. Avoid alcohol, operating machinery or dangerous equipment, working on ladders or roofs, DRIVING, or situations where being under the influence may be dangerous. Zofran(odansetron) tablets 4mg: Take one and allow it to dissolve in your mouth every four to six hours as needed for nausea or vomiting. Acetaminophen(Tylenol) may be used for fever or pain. Use 1000mg every six hours as needed. Avoid using more than 3000mg in a 24 hour period. Rest and drink plenty of fluids as tolerated. Slow sips of water or sports drinks are recommended instead of large amounts all at once. Continue current medications. Once your stomach is settled start with a clear liquid diet (jello, soup broth, etc.) and then advance as tolerated. You should avoid full, heavy meals for about 24 hrs from the time your symptoms resolved. Return to the ER for persistent vomiting, fevers, abdominal pain, chest pains, difficulty breathing, black or bloody stools, worsening of your condition, or as needed. Follow up with your primary physician in 2-3 days for a recheck of your current condition. Work Instructions Additional Work Instructions: no work 12/11-12/15/16 Problem Qualifiers
--- NOTE | 2016-12-13 06:45 | DIAGNOSTIC IMAGING REPORT ---
ABD/PELVIS IV CONTRAST ONLY HISTORY: 46 years-old Male acute severe epigastric pain COMPARISON: None available TECHNIQUE: Multiple axial CT images of the abdomen and pelvis were obtained following the intravenous administration of 93 mL Optiray 320. A dose lowering technique was used consistent with the principals of JOCY. FINDINGS: The exam is mildly limited secondary to patient motion. There is mild dependent bibasilar subsegmental atelectasis present. There is no pneumoperitoneum identified. The imaged inferior cardiac chambers are unremarkable. There is diffuse fatty infiltration of the liver. The gallbladder, spleen, pancreas and adrenal glands appear normal. Kidneys, ureters and prostate are unremarkable. Urinary bladder is partially collapsed. There are small fat filled bilateral inguinal hernias present. The abdominal aorta is normal in course and caliber. No bulky adenopathy. There is no bowel obstruction. High attenuating material is seen within the cecum and appendiceal lumen without evidence of acute appendicitis. The majority of the colon is collapsed with wall thickening. This notably involves the transverse and descending colon. There may also be some mild inflammatory stranding near the splenic flexure. Soft tissues are unremarkable. The bones appear to be intact. IMPRESSION: 1. Collapse with apparent wall thickening of the colon, notably involving the descending and transverse colon may be secondary to underdistention, however colitis may have a similar appearance in the appropriate clinical setting. 2. No bowel obstruction or evidence of acute appendicitis. 3. Fatty infiltration of the liver. The above report was generated using voice recognition software. It may contain grammatical, syntax or spelling errors. Electronically signed by: Candido Estrada M.D. 12/13/2016 6:44 AM Dictated Date/Time: 12/13/2016 6:38 AM
--- NOTE | 2016-12-16 14:55 | Pharmacy Progress Note ---
ED Pharmacist Culture FollowUp Date of Service: Dec 16, 2016. Patient's stool cx is growing campy jejuni. The patient was started on Ciprofloxacin 500mg PO BID x 5 days two days ago when preliminary cx results were reported. This is adequate coverage and no further action required.
== END 2016-12-13 01:29 | disposition home or self-care (01) ==
LOC: C.EDB 21:40 → C.EDC 12-13 01:29
DX: R10.13 Epigastric pain (principal); R11.2 Nausea with vomiting, unspecified; R19.7 Diarrhea, unspecified; K21.9 Gastro-esophageal reflux disease without esophagitis; Z79.899 Other long term (current) drug therapy; Z88.0 Allergy status to penicillin; Z88.5 Allergy status to narcotic agent; Z88.6 Allergy status to analgesic agent; Z80.9 Family history of malignant neoplasm, unspecified; Z83.3 Family history of diabetes mellitus; Z83.79 Family history of other diseases of the digestive system

== ENCOUNTER 2020-06-27 10:55 | Inpatient (IN) ==
[2020-06-27] MEDS ORDERED: SODIUM CHLORIDE 0.9% 1000ML 1,000 ML IV ONE (11:31)
[2020-06-27] MEDS ORDERED: ALBUTEROL 0.083% NEBU SOLN 3 ML VIAL NEB STA (11:31)
--- NOTE | 2020-06-27 11:37 | Emergency Department Note ---
History of Present Illness General Chief complaint: Respiratory Problems Stated complaint: COVID+ TROUBLE BREATHING, UPSET STOMACH Time Seen by Provider: 06/27/20 11:03 History of Present Illness Maximum Pain Intensity: 6 This patient is a pleasant 49-year-old male who presents emergency department via wheelchair for evaluation of increasing shortness of breath that has been going on for the last several days. The patient was seen in the emergency department on 06/25/2020 for similar symptoms. He was diagnosed with Covid and sent home with oxygen. He has continued to worsen since then. He reports a nonproductive cough and mild discomfort in his chest, particularly with coughing . He denies any fever. No nausea, vomiting or diarrhea. He did lose his sense of smell. Home Medications Medication Instructions Recorded Confirmed Type atorvastatin 80 mg PO HS 06/24/20 06/27/20 History sucralfate 1 g PO BID 06/24/20 06/27/20 History azithromycin 250 mg PO HS 06/27/20 06/27/20 History dexamethasone 6 mg PO QAM 06/27/20 06/27/20 History Allergies Allergy/AdvReac Type Severity Reaction Status Date / Time Penicillins Allergy Mild GI UPSET Verified 06/27/20 11:39 AND RASH aspirin Allergy Unknown GI UPSET Verified 06/27/20 11:39 codeine Allergy Unknown GI UPSET Verified 06/27/20 11:39 Past Med/Surg History Medical History Alcohol abuse GERD (gastroesophageal reflux disease) Hyperlipidemia Family History Mother Diabetes Social History Smoking Status: Never smoker Hx Alcohol Use: Yes Alcohol type: beer Alcohol Intake Frequency: 4 or More x per/Week Alcohol Intake Frequency Comment: Drinks 12-pack of Darius Light most days. Hx Substance Use: No Preferred Language: Citizen Of [place] Communication Ability: Effective Manager Utilization Required: No Beliefs That Will Affect Care: None Current Living Situation: Spouse Feels Safe at Home: Yes Assistive Devices: Oxygen - Continuous Review of Systems A total of 10 systems reviewed and were otherwise negative Physical Exam Vital Signs Vital Signs - 24 hr 06/27/20 10:58 06/27/20 11:14 06/27/20 11:15 Temperature 36.8 C Temperature Source Temporal Artery Scan Pulse Rate 87 76 72 Pulse Rate [Right] Pulse Rate from SpO2 Sensor 76 72 Pulse Rhythm Regular Pulse Strength Normal Respiratory Rate 22 27 H 27 H Respiratory Effort / Characteristics Non-Labored Respiratory Depth Normal Respiratory Pattern Regular Blood Pressure 124/86 117/71 Blood Pressure [Right Arm] Blood Pressure Mean 98 86 Blood Pressure Mean [Right Arm] Blood Pressure Position Sitting Pulse Oximetry 92 93 94 Oxygen Delivery Method Nasal Cannula Oxygen Flow Rate 2 Sepsis Recent Fever Within 48 Hours No Sepsis New/Unexplained Change in Mental Status No Sepsis Action Taken by Nursing No Action Required Oxygen Flow Rate - Titration Pulse Oximetry Post Tiitration 06/27/20 11:20 06/27/20 11:30 06/27/20 11:31 Temperature Temperature Source Pulse Rate 75 72 72 Pulse Rate [Right] Pulse Rate from SpO2 Sensor 72 74 Pulse Rhythm Regular Pulse Strength Respiratory Rate 22 27 H 27 H Respiratory Effort / Characteristics Respiratory Depth Respiratory Pattern Blood Pressure 101/73 Blood Pressure [Right Arm] Blood Pressure Mean 82 Blood Pressure Mean [Right Arm] Blood Pressure Position Pulse Oximetry 95 93 92 Oxygen Delivery Method Nasal Cannula Oxygen Flow Rate 2.5 Sepsis Recent Fever Within 48 Hours Sepsis New/Unexplained Change in Mental Status Sepsis Action Taken by Nursing Oxygen Flow Rate - Titration 2.5 Pulse Oximetry Post Tiitration 95 06/27/20 11:44 06/27/20 12:00 06/27/20 12:01 Temperature Temperature Source Pulse Rate 68 73 Pulse Rate [Right] 63 Pulse Rate from SpO2 Sensor 69 73 Pulse Rhythm Pulse Strength Respiratory Rate 20 27 H 26 H Respiratory Effort / Characteristics Non-Labored Spontaneous Respiratory Depth Respiratory Pattern Blood Pressure 109/71 Blood Pressure [Right Arm] Blood Pressure Mean 83 Blood Pressure Mean [Right Arm] Blood Pressure Position Pulse Oximetry 94 95 95 Oxygen Delivery Method Nasal Cannula Oxygen Flow Rate 3 Sepsis Recent Fever Within 48 Hours Sepsis New/Unexplained Change in Mental Status Sepsis Action Taken by Nursing Oxygen Flow Rate - Titration Pulse Oximetry Post Tiitration 06/27/20 12:16 06/27/20 12:30 06/27/20 12:31 Temperature Temperature Source Pulse Rate 73 78 Pulse Rate [Right] 70 Pulse Rate from SpO2 Sensor 73 76 Pulse Rhythm Pulse Strength Respiratory Rate 18 27 H 23 Respiratory Effort / Characteristics Respiratory Depth Respiratory Pattern Blood Pressure 131/77 Blood Pressure [Right Arm] 109/71 Blood Pressure Mean 95 Blood Pressure Mean [Right Arm] 83 Blood Pressure Position Pulse Oximetry 96 96 97 Oxygen Delivery Method Room Air Oxygen Flow Rate Sepsis Recent Fever Within 48 Hours Sepsis New/Unexplained Change in Mental Status Sepsis Action Taken by Nursing Oxygen Flow Rate - Titration Pulse Oximetry Post Tiitration 06/27/20 12:55 06/27/20 13:00 06/27/20 13:01 Temperature Temperature Source Pulse Rate 66 65 Pulse Rate [Right] 69 Pulse Rate from SpO2 Sensor 65 66 Pulse Rhythm Pulse Strength Respiratory Rate 16 19 20 Respiratory Effort / Characteristics Respiratory Depth Respiratory Pattern Blood Pressure 125/77 Blood Pressure [Right Arm] 131/77 Blood Pressure Mean 93 Blood Pressure Mean [Right Arm] 95 Blood Pressure Position Pulse Oximetry 95 95 95 Oxygen Delivery Method Room Air Oxygen Flow Rate Sepsis Recent Fever Within 48 Hours Sepsis New/Unexplained Change in Mental Status Sepsis Action Taken by Nursing Oxygen Flow Rate - Titration Pulse Oximetry Post Tiitration 06/27/20 13:10 06/27/20 13:20 06/27/20 13:30 Temperature Temperature Source Pulse Rate 65 62 82 Pulse Rate [Right] Pulse Rate from SpO2 Sensor 65 62 80 Pulse Rhythm Pulse Strength Respiratory Rate 20 20 28 H Respiratory Effort / Characteristics Respiratory Depth Respiratory Pattern Blood Pressure 112/79 Blood Pressure [Right Arm] Blood Pressure Mean 90 Blood Pressure Mean [Right Arm] Blood Pressure Position Pulse Oximetry 94 95 95 Oxygen Delivery Method Oxygen Flow Rate Sepsis Recent Fever Within 48 Hours Sepsis New/Unexplained Change in Mental Status Sepsis Action Taken by Nursing Oxygen Flow Rate - Titration Pulse Oximetry Post Tiitration 06/27/20 13:31 06/27/20 13:40 06/27/20 13:50 Temperature Temperature Source Pulse Rate 71 62 67 Pulse Rate [Right] Pulse Rate from SpO2 Sensor 72 62 68 Pulse Rhythm Pulse Strength Respiratory Rate 29 H 21 28 H Respiratory Effort / Characteristics Respiratory Depth Respiratory Pattern Blood Pressure Blood Pressure [Right Arm] Blood Pressure Mean Blood Pressure Mean [Right Arm] Blood Pressure Position Pulse Oximetry 94 95 94 Oxygen Delivery Method Oxygen Flow Rate Sepsis Recent Fever Within 48 Hours Sepsis New/Unexplained Change in Mental Status Sepsis Action Taken by Nursing Oxygen Flow Rate - Titration Pulse Oximetry Post Tiitration 06/27/20 13:55 06/27/20 14:00 06/27/20 14:01 Temperature Temperature Source Pulse Rate 70 70 Pulse Rate [Right] 67 Pulse Rate from SpO2 Sensor 71 71 Pulse Rhythm Pulse Strength Respiratory Rate 16 32 H 26 H Respiratory Effort / Characteristics Respiratory Depth Respiratory Pattern Blood Pressure 128/84 Blood Pressure [Right Arm] 112/79 Blood Pressure Mean 98 Blood Pressure Mean [Right Arm] 90 Blood Pressure Position Pulse Oximetry 94 94 95 Oxygen Delivery Method Nasal Cannula Oxygen Flow Rate 2.5 Sepsis Recent Fever Within 48 Hours Sepsis New/Unexplained Change in Mental Status Sepsis Action Taken by Nursing Oxygen Flow Rate - Titration Pulse Oximetry Post Tiitration 06/27/20 14:10 Temperature Temperature Source Pulse Rate 74 Pulse Rate [Right] Pulse Rate from SpO2 Sensor 73 Pulse Rhythm Pulse Strength Respiratory Rate 23 Respiratory Effort / Characteristics Respiratory Depth Respiratory Pattern Blood Pressure Blood Pressure [Right Arm] Blood Pressure Mean Blood Pressure Mean [Right Arm] Blood Pressure Position Pulse Oximetry 95 Oxygen Delivery Method Oxygen Flow Rate Sepsis Recent Fever Within 48 Hours Sepsis New/Unexplained Change in Mental Status Sepsis Action Taken by Nursing Oxygen Flow Rate - Titration Pulse Oximetry Post Tiitration Constitutional WD/WN, vitals as above Fatigued Eyes EOM intact bilaterally ENMT external ear and nose normal, oropharynx normal Neck trachea midline Respiratory Decreased breath sounds at the bases bilaterally. No wheezing noted. Cardiovascular RRR, no murmur, no edema Gastrointestinal (Abdomen) normal bowel sounds, soft, nontender, no hepatosplenomegaly Musculoskeletal no cyanosis or clubbing, extremities motor strength 5/5 Skin no rashes, warm and dry Neurologic Alert and oriented x3. No focal motor deficits. Psychiatric Acting appropriately Course Course Patient was seen and examined Vital signs including blood pressure were reviewed medications list was verified with patient Labs were obtained, and a saline lock was established An order was placed for continuous cardiac monitoring. The monitor shows a rate of 78 with normal sinus rhythm. The patient was reassessed and feeling better. We discussed his results. He voiced understanding, was comfortable with the disposition. I spoke with the hospitalist group, who kindly agreed to evaluate the patient for likely inpatient management. Consultations Consultation #1: dr. maxine haines [facility] hospitalist group Administered Medications Atorvastatin Calcium (Atorvastatin 40 Mg Tab) 80 mg PO HS JACE Stop: 07/27/20 20:59 Last Admin: 06/27/20 20:27 Dose: 80 mg Documented by: [id number] Enoxaparin Sodium (Enoxaparin Inj 40 Mg/0.4 Ml Syr) 40 mg SQ Q12H JACE Stop: 07/27/20 20:59 Last Admin: 06/27/20 20:28 Dose: 40 mg Documented by: [id number] Folic Acid (Folic Acid 1 Mg Tab) 1 mg PO QAM JACE Stop: 07/27/20 16:48 Last Admin: 06/27/20 18:45 Dose: 1 mg Documented by: [id number] Potassium Chloride 40 meq/ (Sodium Chloride) 1,020 mls @ 80 mls/hr IV .[id number] JACE Stop: 07/27/20 17:59 Last Admin: 06/27/20 18:44 Dose: 80 mls/hr Documented by: [id number] Sucralfate (Sucralfate 1 Gm Tab) 1 gm PO BID JACE Stop: 07/27/20 20:59 Last Admin: 06/27/20 20:28 Dose: 1 gm Documented by: [id number] Thiamine HCl (Thiamine Hcl 100 Mg Tab) 100 mg PO QAM JACE Stop: 07/27/20 16:48 Last Admin: 06/27/20 18:45 Dose: 100 mg Documented by: [id number] Discontinued Medications Albuterol (Albuterol 0.083% Nebu Soln 3 Ml Vial) 2.5 mg NEB NOW STA Stop: 06/27/20 11:32 Last Admin: 06/27/20 11:43 Dose: 2.5 mg Documented by: [id number] Dexamethasone (Dexamethasone Sod Inj 10 Mg/Ml Vial) 10 mg IV NOW ONE Stop: 06/27/20 13:40 Last Admin: 06/27/20 13:56 Dose: 10 mg Documented by: [id number] Sodium Chloride (Nss 1000ml) 1,000 mls @ 999 mls/hr IV .[id number] ONE Stop: 06/27/20 12:31 Last Infusion: 06/27/20 13:17 Dose: 0 mls/hr Documented by: [id number] Admin: 06/27/20 12:04 Dose: 999 mls/hr Documented by: [id number] Potassium Chloride (K Moreno / Wtr) 10 meq in 100 mls @ 100 mls/hr IV ONE ONE Stop: 06/27/20 13:57 Last Infusion: 06/27/20 15:00 Dose: 0 mls/hr Documented by: [id number] Admin: 06/27/20 13:56 Dose: 100 mls/hr Documented by: [id number] Levofloxacin/Dextrose (Levaquin/D5w) 750 mg in 150 mls @ 100 mls/hr IV NOW STA Stop: 06/27/20 15:12 Last Infusion: 06/27/20 17:27 Dose: 0 mls/hr Documented by: [id number] Admin: 06/27/20 13:56 Dose: 100 mls/hr Documented by: [id number] Thiamine HCl 100 mg/ Syringe 10 mls @ 2 mls/min IV NOW STA Stop: 06/27/20 17:05 Last Admin: 06/27/20 18:44 Dose: 2 mls/min Documented by: [id number] Potassium Chloride (Potassium Chloride Crtab 20 Meq Tabcr) 40 meq PO NOW STA Stop: 06/27/20 16:50 Last Admin: 06/27/20 18:45 Dose: 40 meq Documented by: [id number] Medical Decision Making Laboratory Data Result diagrams: 06/27/20 11:13 06/27/20 11:13 Lab Results 06/27/20 06/27/20 06/27/20 Range/Units 11:13 11:13 11:13 WBC 7.82 (4.8-10.8) K/uL RBC 4.52 L (4.7-6.1) M/uL Hgb 14.5 (14.0-18.0) g/dL Hct 40.7 L (42-52) % MCV 90.0 (80-100) fL MCH 32.1 (25-34) pg MCHC 35.6 (32-36) g/dL RDW Std Deviation 40.1 (36.4-46.3) fL RDW Coeff of Rosa Elena 12.3 (11.5-14.5) % Plt Count 149 (130-400) K/uL MPV 10.8 H (7.4-10.4) fL Immature Gran % (Auto) 0.1 % Neut % (Auto) 90.2 % Lymph % (Auto) 4.6 % P[place] % (Auto) 5.0 % Eos % (Auto) 0.0 % Baso % (Auto) 0.1 % Neut # (Auto) 7.05 H (1.4-6.5) K/uL Lymph # (Auto) 0.36 L (1.2-3.4) K/uL P[place] # (Auto) 0.39 (0.11-0.59) K/uL Eos # (Auto) 0.00 (0-0.5) K/uL Baso # (Auto) 0.01 (0-0.2) K/uL Immature Gran # (Auto) 0.01 (0.00-0.02) K/uL PT 10.3 (9.0-12.0) Seconds INR 1.0 (0.9-1.1) Sodium 141 (136-145) mmol/L Potassium 3.0 L (3.5-5.1) mmol/L Chloride 108 H (98-107) mmol/L Carbon Dioxide 24 (21-32) mmol/L Anion Gap 9.0 (3-11) BUN 17 (7-18) mg/dl Creatinine 0.98 (0.6-1.4) mg/dl Est Cr Clr Drug Dosing Not Reportable Est GFR ( Amer) 103.8 Est GFR (Non-Af Amer) 89.5 BUN/Creatinine Ratio 17.8 (10-20) Glucose 123 H (70-99) mg/dl Calcium 8.7 (8.5-10.1) mg/dl Total Bilirubin 0.6 (0.2-1) mg/dl AST 73 H (15-37) U/L ALT 103 H (12-78) U/L Alkaline Phosphatase 106 (45-117) U/L Lactate Dehydrogenase (87-241) U/L Troponin I < 0.015 (0-0.045) ng/ml Total Protein 7.3 (6.4-8.2) gm/dl Albumin 3.3 L (3.4-5.0) gm/dl Globulin 4.0 (2.5-4.0) gm/dl Albumin/Globulin Ratio 0.8 L (0.9-2) Procalcitonin (0-0.5) ng/ml 06/27/20 06/27/20 Range/Units 11:13 11:13 WBC (4.8-10.8) K/uL RBC (4.7-6.1) M/uL Hgb (14.0-18.0) g/dL Hct (42-52) % MCV (80-100) fL MCH (25-34) pg MCHC (32-36) g/dL RDW Std Deviation (36.4-46.3) fL RDW Coeff of Rosa Elena (11.5-14.5) % Plt Count (130-400) K/uL MPV (7.4-10.4) fL Immature Gran % (Auto) % Neut % (Auto) % Lymph % (Auto) % P[place] % (Auto) % Eos % (Auto) % Baso % (Auto) % Neut # (Auto) (1.4-6.5) K/uL Lymph # (Auto) (1.2-3.4) K/uL P[place] # (Auto) (0.11-0.59) K/uL Eos # (Auto) (0-0.5) K/uL Baso # (Auto) (0-0.2) K/uL Immature Gran # (Auto) (0.00-0.02) K/uL PT (9.0-12.0) Seconds INR (0.9-1.1) Sodium (136-145) mmol/L Potassium (3.5-5.1) mmol/L Chloride (98-107) mmol/L Carbon Dioxide (21-32) mmol/L Anion Gap (3-11) BUN (7-18) mg/dl Creatinine (0.6-1.4) mg/dl Est Cr Clr Drug Dosing Est GFR ( Amer) Est GFR (Non-Af Amer) BUN/Creatinine Ratio (10-20) Glucose (70-99) mg/dl Calcium (8.5-10.1) mg/dl Total Bilirubin (0.2-1) mg/dl AST (15-37) U/L ALT (12-78) U/L Alkaline Phosphatase (45-117) U/L Lactate Dehydrogenase 303 H (87-241) U/L Troponin I (0-0.045) ng/ml Total Protein (6.4-8.2) gm/dl Albumin (3.4-5.0) gm/dl Globulin (2.5-4.0) gm/dl Albumin/Globulin Ratio (0.9-2) Procalcitonin 0.10 (0-0.5) ng/ml Imaging Data Attestation: I personally reviewed and interpreted this imaging study as fol lows: Radiologist's Impression: cxr . Progressive bilateral airspace opacities suggests worsening pneumonia. 2. Trace pleural effusions. ACT 112: Negative or not required by law. The above report was generated using voice recognition software. It may contain grammatical, syntax or spelling errors. Electronically signed by: Candido Estrada M.D. 06/27/2020 1:01 PM Dictated: 06/27/201258Transcribed: 06/27/201258 ECG Data Attestation: I personally reviewed and interpreted this ECG as follows: Indication: + other Rate (beats per minute): 74 Rhythm: + sinus rhythm Additional Comments: Normal sinus rhythm. Nonspecific ST normality particularly in the lateral leads. No significant change compared to 06/25/2020 MDM Narrative Differential diagnosis: Viral pneumonia, bacterial pneumonia, pneumothorax, cardiac ischemia, anemia, electrolyte abnormality, among others were considered This patient is a pleasant 49-year-old male that returns emergency department for increasing shortness of breath after being seen in the emergency department a few days ago and diagnosed with Covid. On exam, the patient did appear significantly fatigued. He was sent home with oxygen, which she typically does not wear. He was saturating in the low 90s, high 80s on 2 L. This was increased in the emergency department. A work-up was performed. There is no leukocytosis. Labs are fairly unremarkable. Given the fact that the patient has not done well as an outpatient with oxygen, I do not feel comfortable sending the patient home as his chest x-ray appears to be worsening. The patient was in agreement. He remained stable in the emergency department. He will be evaluated for likely inpatient management. Impression & Plan Pneumonia, COVID-19 Discharge Plan Visit Data Chief Complaint: Respiratory Problems Stated Complaint: COVID+ TROUBLE BREATHING, UPSET STOMACH ED Provider: Felipe Funez ED Midlevel Provider: Alivia Aguilar Discharge Problem: Pneumonia, COVID-19 Patient Disposition: Admitted As Inpatient Discharge Instructions Interventions: ED Discharge Assessment Last Done: 06/27/20 16:09
[2020-06-27 11:42] LABS: Basophils # (auto) 0.01 K/uL (0-0.2); Basophils % (auto) 0.1 %; Hematocrit (blood only) 40.7 % (42-52); Hemoglobin 14.5 g/dL (14.0-18.0); Immature Granulocytes # (auto) 0.01 K/uL (0.00-0.02); Immature Granulocytes % (auto) 0.1 %; Lymphocytes # (auto) 0.36 K/uL (1.2-3.4); Lymphocytes % (auto) 4.6 %; Mean Corpuscular Hemoglobin 32.1 pg (25-34); Mean Corpuscular Hgb Conc 35.6 g/dL (32-36); Mean Platelet Volume 10.8 fL (7.4-10.4); Monocytes # (auto) 0.39 K/uL (0.11-0.59); Neutrophils # (auto) 7.05 K/uL (1.4-6.5); Neutrophils % (auto) 90.2 %; Platelet Count 149 K/uL (130-400); RDW Coefficient of Variation 12.3 % (11.5-14.5); RDW Standard Deviation 40.1 fL (36.4-46.3); Red Blood Count 4.52 M/uL (4.7-6.1); White Blood Count 7.82 K/uL (4.8-10.8)
[2020-06-27 11:50] LABS: Alanine Aminotransferase 103 U/L (12-78); Albumin Level 3.3 gm/dl (3.4-5.0); Aspartate Aminotransferase 73 U/L (15-37); BUN Creatinine Ratio 17.8 (10-20); Blood Urea Nitrogen 17 mg/dl (7-18); Calcium 8.7 mg/dl (8.5-10.1); Carbon Dioxide 24 mmol/L (21-32); Chloride 108 mmol/L (98-107); Est GFR (African American) 103.8; Est GFR (Non-African American) 89.5; Glucose 123 mg/dl (70-99); Sodium 141 mmol/L (136-145)
[2020-06-27 11:51] LABS: Prothrombin Time 10.3 Seconds (9.0-12.0)
[2020-06-27 11:55] LABS: Albumin Globulin Ratio 0.8 (0.9-2); Alkaline Phosphatase 106 U/L (45-117); Bilirubin,Total 0.6 mg/dl (0.2-1); Total Protein 7.3 gm/dl (6.4-8.2); Troponin I < 0.015 ng/ml (0-0.045)
[2020-06-27] MEDS ORDERED: POTASSIUM CHLORIDE / WTR 10 MEQ/100 ML PLCT IV ONE (12:58)
--- NOTE | 2020-06-27 13:02 | XRay Report ---
XR chest 1V portable HISTORY: 49 years-old Male covid acute shortness of breath. COVID Positive. COMPARISON: Chest radiograph 06/24/2020 TECHNIQUE: Portable AP view of the chest FINDINGS: Cardiac silhouette is enlarged. Pulmonary vascular congestion with progressively worsened patchy bila teral airspace opacities. Trace pleural effusions. No pneumothorax. Bones appear grossly intact. IMPRESSION: 1. Progressive bilateral airspace opacities suggests worsening pneumonia. 2. Trace pleural effusions. ACT 112: Negative or not required by law. The above report was generated using voice recognition software. It may contain grammatical, syntax o r spelling errors. Electronically signed by: Candido Estrada M.D. 06/27/2020 1:01 PM
[2020-06-27] MEDS ORDERED: DEXAMETHASONE SOD INJ 10 MG/ML VIAL IV ONE (13:39)
[2020-06-27] MEDS ORDERED: levoFLOXacin/D5W 750 MG/150 ML BAG IV STA (13:43)
--- NOTE | 2020-06-27 14:30 | History & Physical Report ---
Date of Service June 27, 2020 Assessment & Plan (1) COVID-19: Initial symptoms ~06/19/2020. Positive test on 06/24/2020. - Started dexamethasone 6 mg PO daily on 06/24/2020 at first ED visit -> Continue this until 07/03/2020 for 10-day course - Not a candidate for remdesivir or plasma due to presentation time - Procalcitonin was 0.10 and he had already been on azithromycin, so I do not see need for present abx. - DuoNebs PRN - Supplemental O2 PRN -> Presently on 3.5 L with 95% SpO2 on my exam today. (2) Chest pain: Waxing/waning with Covid. No clear inciting factors. EKG from past 3 days is stable. Troponins negative on both ED visits. - Tylenol PRN for MSK pain (3) Alcohol abuse: Reports he drinks a 12-pack of Darius Light "most" days. Denies hx of withdrawals or seizures. Reports sometimes doesn't drink that much, but is vague when asked how much he drinks on the lesser days. - FELICIA scale over the next few days. (4) Hyperlipidemia: - Continue statin (5) GERD (gastroesophageal reflux disease): - Continue sucralfate (6) DVT prophylaxis: Lovenox 40 mg SQ Q12h History of Present Illness Primary Care Provider: Rodrigo Lynch MD 49yo M w/ hx of HLD, GERD, and alcohol overuse who presents with Covid-19. First felt ill ~06/19/2020 with loss of taste and smell. He also began to have shortness of breath, body aches, diarrhea, abdominal pain, chest pain, and dizziness. Not a lot of cough. He presented to the ED on 06/24 and tested positive for Covid. He was sent home on azithromycin, dexamethasone, and home O2. He presents today with generalized weakness as well as continued shortness of breath and the prior symptoms. He reports he hasn't had anything to eat in several days due to loss of appetite. Allergies Allergy/AdvReac Type Severity Reaction Status Date / Time Penicillins Allergy Mild GI UPSET Verified 06/27/20 11:39 AND RASH aspirin Allergy Unknown GI UPSET Verified 06/27/20 11:39 codeine Allergy Unknown GI UPSET Verified 06/27/20 11:39 Home Medications Medication Instructions Recorded Confirmed Type atorvastatin 80 mg PO HS 06/24/20 06/27/20 History sucralfate 1 g PO BID 06/24/20 06/27/20 History azithromycin 250 mg PO HS 06/27/20 06/27/20 History dexamethasone 6 mg PO QAM 06/27/20 06/27/20 History Past Med/Surg History Medical History GERD (gastroesophageal reflux disease) Hyperlipidemia Family History (Updated 06/27/20 @ 14:19 by Gerald Pina MD) Mother Diabetes Social History (Updated 06/27/20 @ 14:20 by Gerald Pina MD) Smoking Status: Never smoker Hx Alcohol Use: Yes Alcohol type: beer Alcohol Intake Frequency: 4 or More x per/Week Alcohol Intake Frequency Comment: Drinks 12-pack of Darius Light most days. Preferred Language: Iranian Feels Safe at Home: Yes Review of Systems Review of Systems: All systems reviewed & are unremarkable except as noted in HPI & below Physical Exam Constitutional: WD/WN, vitals as above + acute distress Eyes: EOM intact bilaterally; no conjunctival abnormality ENMT: external ear and nose normal, oropharynx normal Neck: trachea midline, no thyromegaly normal visual inspection Respiratory: + labored breathing; no respiratory distress and does not use accessory muscles Auscultation: + crackles Cardiovascular: RRR, no murmur, no edema Gastrointestinal (Abdomen): Inspection/Auscultation: abdomen normal to inspection; abdomen not distended Musculoskeletal: no cyanosis or clubbing, extremities motor strength 5/5 Skin: no rashes, warm and dry Neurologic: moves all extremities and awake Psychiatric: Orientation: alert, oriented to person and cooperative Results & Data Results & Data ([facility]) Vital Signs (Past 12 Hours) Vital Signs Temp Pulse Pulse Resp BP BP Pulse Ox 06/27/20 13:55 67 16 112/79 94 06/27/20 13:01 65 20 95 06/27/20 13:00 66 19 125/77 95 06/27/20 12:55 69 16 131/77 95 06/27/20 12:31 78 23 97 06/27/20 12:30 73 27 H 131/77 96 06/27/20 12:16 70 18 109/71 96 06/27/20 12:01 73 26 H 95 06/27/20 12:00 68 27 H 109/71 95 06/27/20 11:44 63 20 94 06/27/20 11:31 72 27 H 92 06/27/20 11:30 72 27 H 101/73 93 06/27/20 11:20 75 22 95 06/27/20 11:15 72 27 H 117/71 94 06/27/20 11:14 76 27 H 93 06/27/20 10:58 36.8 C 87 22 124/86 92 Code Status & VTE Plan VTE Prophylaxis Plan VTE Prophylaxis will be ordered: Yes PG Care Time/CCT Total # of Minutes Spent Total Time Spent with Patient: Total time spent is greater than 50% in coordination of care (as documented) at patient's floor/unit and/or counseling patient: Coding Level of Care Code 84146 Initial Inpt Care Lvl 3 Diagnoses COVID-19 U07.1 Chest pain R07.9 Chest pain type: unspecified Alcohol abuse F10.10 Hyperlipidemia E78.5 GERD (gastroesophageal reflux disease) K21.9 DVT prophylaxis Z29.9 (1) Chest pain Chest pain type: unspecified Qualified Code(s): R07.9 - Chest pain, unspecified
[2020-06-27] MEDS ORDERED: POTASSIUM CHLORIDE CRTAB 20 MEQ TABCR PO STA (16:49)
[2020-06-27] MEDS ORDERED: ONDANSETRON INJ 2 MG/ML 2 ML VIAL IV PRN (16:49)
[2020-06-27] MEDS ORDERED: LORazepam 1 MG TAB PO PRN (16:49)
[2020-06-27] MEDS ORDERED: ALBUT/IPRATROP 3MG/0.5MG NEB 3 ML VIAL NEB PRN (16:49)
--- NOTE | 2020-06-27 16:53 | Electrocardiogram Report ---
Test Reason : Blood Pressure : / mmHG Vent. Rate : 074 BPM Atrial Rate : 074 BPM P-R Int : 154 ms QRS Dur : 112 ms QT Int : 408 ms P-R-T Axes : 047 019 010 degrees QTc Int : 452 ms Normal sinus rhythm Nonspecific T wave abnormality Abnormal ECG When compared with ECG of 24-JUN-2020 11:35, Nonspecific T wave abnormality now evident in Anterior leads Confirmed by Rodrigo Kelly ([id number] on 06/27/2020 4:53:45 PM Referred By: ER Confirmed By:Sami Kelly
[2020-06-27] MEDS ORDERED: THIAMINE HCL 100 MG in SYRINGE 9 ML IV STA (17:01)
[2020-06-27] MEDS: POTASSIUM CHLORIDE 40 MEQ in SODIUM CHLORIDE 0.9% 1000ML 1,000 ML IV SCH (18:44)
[2020-06-27] MEDS: FOLIC ACID 1 MG TAB PO SCH (18:45)
[2020-06-27] MEDS: THIAMINE HCL 100 MG TAB PO SCH (18:45)
[2020-06-27] MEDS: ATORVASTATIN 40 MG TAB PO SCH (20:27)
[2020-06-27] MEDS: SUCRALFATE 1 GM TAB PO SCH (20:28)
[2020-06-27] MEDS: ENOXAPARIN INJ 40 MG/0.4 ML SYR SQ SCH (20:28)
[2020-06-28] MEDS ORDERED: MELATONIN 3 MG TAB PO PRN (00:18)
[2020-06-28] MEDS: ACETAMINOPHEN 325 MG TAB PO PRN ×2 (04:49→17:17)
[2020-06-28 06:44] LABS: Hematocrit (blood only) 37.4 % (42-52); Mean Corpuscular Hemoglobin 31.6 pg (25-34); Mean Corpuscular Hgb Conc 34.8 g/dL (32-36); Mean Corpuscular Volume 90.8 fL (80-100); Mean Platelet Volume 10.6 fL (7.4-10.4); Platelet Count 165 K/uL (130-400); RDW Coefficient of Variation 12.2 % (11.5-14.5); RDW Standard Deviation 40.8 fL (36.4-46.3); Red Blood Count 4.12 M/uL (4.7-6.1); White Blood Count 8.61 K/uL (4.8-10.8)
[2020-06-28 07:16] LABS: Albumin Globulin Ratio 0.8 (0.9-2); Albumin Level 2.7 gm/dl (3.4-5.0); BUN Creatinine Ratio 21.6 (10-20); Bilirubin,Total 0.6 mg/dl (0.2-1); Calcium 8.7 mg/dl (8.5-10.1); Creatinine Clr Calc Pharmacy 131.8 ml/min; Est GFR (African American) 121.4; Est GFR (Non-African American) 104.7; Globulin 3.5 gm/dl (2.5-4.0); Magnesium 2.1 mg/dl (1.8-2.4); Phosphorus 2.4 mg/dl (2.5-4.9); Potassium 3.5 mmol/L (3.5-5.1); Total Protein 6.2 gm/dl (6.4-8.2)
[2020-06-28] MEDS: THIAMINE HCL 100 MG TAB PO SCH (08:55)
[2020-06-28] MEDS: ENOXAPARIN INJ 40 MG/0.4 ML SYR SQ SCH ×2 (08:55→21:56)
[2020-06-28] MEDS: SUCRALFATE 1 GM TAB PO SCH ×2 (08:55→21:57)
[2020-06-28] MEDS: FOLIC ACID 1 MG TAB PO SCH (08:55)
[2020-06-28] MEDS: dexAMETHasone 4 MG TAB PO SCH (08:55)
[2020-06-28] MEDS: POTASSIUM CHLORIDE 40 MEQ in SODIUM CHLORIDE 0.9% 1000ML 1,000 ML IV SCH ×2 (08:56→23:43)
--- NOTE | 2020-06-28 09:14 | Hospitalist Progress Note ---
Date of Service June 28, 2020 Assessment & Plan (1) COVID-19: COVID-19 pneumonia . initial symptoms ~06/19/2020. Positive test on 06/24/2020. - Started dexamethasone 6 mg PO daily on 06/24/2020 at first ED visit -> Continue this until 07/03/2020 for 10-day course - Procalcitonin was 0.10 and he had already been on azithromycin, so admitting doctor did not choose to continue any antibiotics. - DuoNebs PRN - Supplemental O2 PRN -> Presently on 3.5 L with 95% SpO2 on my exam today. COVID-19 related diarrhea check stool cultures and C. difficile however likely from Covid (2) Chest pain: Waxing/waning with Covid. No clear inciting factors. EKG from past 3 days is stable. Troponins negative on both ED visits. - Tylenol PRN for MSK pain (3) Alcohol abuse: Reports he drinks a 12-pack of Darius Light "most" days. Denies hx of withdrawals or seizures. Reports sometimes doesn't drink that much, but is vague when asked how much he drinks on the lesser days. - FELICIA scale over the next few days. Exhibiting signs or symptoms of alcohol withdrawal at this time (4) Hyperlipidemia: - Continue statin (5) GERD (gastroesophageal reflux disease): - Continue sucralfate (6) DVT prophylaxis: Lovenox 40 mg SQ Q12h higher dose based on thrombophilia of Covid infection Admission and Anticipated Discharge Date Admission Date: June 27, 2020 Subjective Patient is dyspneic he is complaining of diarrhea he has nonproductive cough is not exhibiting any signs of alcohol withdrawal or tremulousness and says that he has not had issues like this in the past when he stopped drinking. He remains on 6 L nasal cannula saturating in the low 90s. His chest x-ray is reviewed and has only mild Covid changes at this point time Review of Systems Review of Systems: Moderate respiratory distress and fatigue no headache, blurry or double vision no speech or swallowing issues no chest pain, pressure or palpitations Baseline shortness of breath worse with exertion nonproductive cough no abdominal pain, nausea or vomiting, he is complaining is a persistent diarrhe a no dysuria, hematuria or frequency no focal joint pain or swelling no back pain, CVA tenderness or radicular pain no bruising, bleeding or rashes no focal signs of weakness or numbness or altered sensation no complaints of anxiety or depression.. Physical Exam Physical Exam: The patient appeared well nourished and normally developed. Vital signs as documented. Head exam is normocephalic atraumatic no scleral icterus Neck is without JVD, thyromegaly, or carotid bruits. Lungs are coarse rales heard bibasilarly left greater than right Cardiac exam, Rhythm is regular.. No murmurs, rubs or gallops. Abdominal exam reveals hyperactive bowel sounds, soft non tender, no masses Extremities are nonedematous and both pedal pulses are present Neurologic exam is alert and oriented, no focal loss of strength or sensation Skin is without bruises or rashes Psychologically is without concerns for anxiety or depression Results & Data Results & Data ([facility]) Vital Signs (Past 12 Hours) Vital Signs Temp Pulse Resp BP BP Pulse Ox 06/28/20 08:08 98.6 F 77 16 135/82 94 06/28/20 04:48 99.3 F 71 20 138/89 93 06/28/20 00:47 87 L 06/27/20 23:29 97.7 F 64 18 127/77 92 PG Care Time/CCT Total # of Minutes Spent Total Time Spent with Patient: Total time spent is greater than 50% in coordination of care (as documented) at patient's floor/unit and/or counseling patient: Coding Level of Care Code 41784 Subseq Hosp Care Lvl 3 Diagnoses COVID-19 U07.1 Chest pain R07.9 Chest pain type: unspecified Alcohol abuse F10.10 Hyperlipidemia E78.5 GERD (gastroesophageal reflux disease) K21.9 DVT prophylaxis Z29.9 (1) Chest pain Chest pain type: unspecified Qualified Code(s): R07.9 - Chest pain, unspecified
[2020-06-28] MEDS ORDERED: LOPERAMIDE HCL 2 MG CAP PO PRN (18:24)
[2020-06-28] MEDS: ATORVASTATIN 40 MG TAB PO SCH (21:56)
[2020-06-29] MEDS: POTASSIUM CHLORIDE 40 MEQ in SODIUM CHLORIDE 0.9% 1000ML 1,000 ML IV SCH (09:15)
[2020-06-29] MEDS: SUCRALFATE 1 GM TAB PO SCH ×2 (09:17→20:56)
[2020-06-29] MEDS: ENOXAPARIN INJ 40 MG/0.4 ML SYR SQ SCH ×2 (09:17→20:56)
[2020-06-29] MEDS: THIAMINE HCL 100 MG TAB PO SCH (09:17)
[2020-06-29] MEDS: FOLIC ACID 1 MG TAB PO SCH (09:18)
[2020-06-29] MEDS: dexAMETHasone 4 MG TAB PO SCH (09:18)
--- NOTE | 2020-06-29 16:10 | Hospitalist Progress Note ---
Date of Service June 29, 2020 Assessment & Plan (1) COVID-19: COVID-19 pneumonia . initial symptoms ~06/19/2020. Positive test on 06/24/2020. - Started dexamethasone 6 mg PO daily on 06/24/2020 at first ED visit -> Continue this until hypoxia resolves or a 10-day course - Procalcitonin was 0.10 and he had already been on azithromycin, so admitting doctor did not choose to continue any antibiotics. - DuoNebs PRN - Supplemental O2 PRN -> Presently on 3L with 95% SpO2 COVID-19 related diarrhea check stool cultures and C. difficile however likely from Covid (2) Chest pain: Waxing/waning with Covid. No clear inciting factors. EKG from past 3 days is stable. Troponins negative on both ED visits. - Tylenol PRN for MSK pain - no further chest pain (3) Alcohol abuse: Reports he drinks a 12-pack of Darius Light "most" days. Denies hx of withdrawals or seizures. Reports sometimes doesn't drink that much, but is vague when asked how much he drinks on the lesser days. Not exhibiting signs or symptoms of alcohol withdrawal at this time (4) Hyperlipidemia: - Continue statin (5) GERD (gastroesophageal reflux disease): - Continue sucralfate (6) DVT prophylaxis: Lovenox 40 mg SQ Q12h higher dose based on thrombophilia of Covid infection Admission and Anticipated Discharge Date Admission Date: June 27, 2020 Subjective Patient looks much better today he says he also feels much better. He is still dyspneic and hypoxemic requiring supplemental oxygen his cough is less and his diarrhea has resolved Review of Systems Review of Systems: Moderate respiratory distress and fatigue no headache, blurry or double vision no speech or swallowing issues no chest pain, pressure or palpitations Shortness of breath and coughing have resolved no abdominal pain, nausea or vomiting, has had resolution of diarrhea no dysuria, hematuria or frequency no focal joint pain or swelling no back pain, CVA tenderness or radicular pain no bruising, bleeding or rashes no focal signs of weakness or numbness or altered sensation no complaints of anxiety or depression.. Physical Exam Physical Exam: The patient appeared well nourished and normally developed. Vital signs as documented. Head exam is normocephalic atraumatic no scleral icterus Neck is without JVD, thyromegaly, or carotid bruits. Lungs are with persistent bibasilar rales left greater than right Cardiac exam, Rhythm is regular.. No murmurs, rubs or gallops. Abdominal exam reveals hyperactive bowel sounds, soft non tender, no masses Extremities are nonedematous and both pedal pulses are present Neurologic exam is alert and oriented, no focal loss of strength or sensation Skin is without bruises or rashes Psychologically is without concerns for anxiety or depression Results & Data Results & Data ([facility]) Vital Signs (Past 12 Hours) Vital Signs Temp Pulse Resp BP Pulse Ox 06/29/20 15:47 98.2 F 62 18 120/77 95 06/29/20 07:59 98.8 F 62 18 134/86 93 PG Care Time/CCT Total # of Minutes Spent Total Time Spent with Patient: Total time spent is greater than 50% in coordination of care (as documented) at patient's floor/unit and/or counseling patient: Coding Level of Care Code 51192 Subseq Hosp Care Lvl 2 Diagnoses COVID-19 U07.1 Chest pain R07.9 Chest pain type: unspecified Alcohol abuse F10.10 Hyperlipidemia E78.5 GERD (gastroesophageal reflux disease) K21.9 DVT prophylaxis Z29.9 (1) Chest pain Chest pain type: unspecified Qualified Code(s): R07.9 - Chest pain, unspecified
[2020-06-29] MEDS: POTASSIUM CHLORIDE CRTAB 20 MEQ TABCR PO SCH (17:01)
[2020-06-29] MEDS: ATORVASTATIN 40 MG TAB PO SCH (20:56)
[2020-06-30] MEDS: dexAMETHasone 4 MG TAB PO SCH (08:09)
[2020-06-30] MEDS: SUCRALFATE 1 GM TAB PO SCH (08:09)
[2020-06-30] MEDS: FOLIC ACID 1 MG TAB PO SCH (08:10)
[2020-06-30] MEDS: ENOXAPARIN INJ 40 MG/0.4 ML SYR SQ SCH (08:10)
[2020-06-30] MEDS: THIAMINE HCL 100 MG TAB PO SCH (08:10)
[2020-06-30] MEDS: POTASSIUM CHLORIDE CRTAB 20 MEQ TABCR PO SCH (10:15)
[2020-06-30 10:17] LABS: BUN Creatinine Ratio 19.3 (10-20); Calcium 9.2 mg/dl (8.5-10.1); Est GFR (African American) 117.2; Est GFR (Non-African American) 101.1; Potassium 3.8 mmol/L (3.5-5.1)
[2020-06-30] MEDS: ACETAMINOPHEN 325 MG TAB PO PRN (10:20)
--- NOTE | 2020-06-30 18:34 | Discharge Summary ---
Date of Service June 30, 2020 Admission HPI Per Admitting Provider 49yo M w/ hx of HLD, GERD, and alcohol overuse who presents with Covid-19. First felt ill ~06/19/2020 with loss of taste and smell. He also began to have shortness of breath, body aches, diarrhea, abdominal pain, chest pain, and dizziness. Not a lot of cough. He presented to the ED on 06/24 and tested positive for Covid. He was sent home on azithromycin, dexamethasone, and home O2. He presents today with generalized weakness as well as continued shortness of breath and the prior symptoms. He reports he hasn't had anything to eat in several days due to loss of appetite. Principal Diagnosis covid pneumonia Discharge Exam The patient appeared well Vital signs as documented. Lungs are only with scant rales otherwise are clear Cardiac exam, Rhythm is regular.. No murmurs, rubs or gallops. Abdominal exam reveals normal bowel sounds, soft non tender, no masses Extremities are nonedematous and both pedal pulses are normal. Neurologic exam is alert and oriented, no focal loss of strength or sensation Skin is without bruises or rashes Psychologically is without concerns for anxiety or depression. Discharge Data Allergies Allergy/AdvReac Type Severity Reaction Status Date / Time Penicillins Allergy Mild GI UPSET Verified 06/27/20 11:39 AND RASH aspirin Allergy Unknown GI UPSET Verified 06/27/20 11:39 codeine Allergy Unknown GI UPSET Verified 06/27/20 11:39 Hospital Course (1) COVID-19: COVID-19 pneumonia . initial symptoms ~06/19/2020. Positive test on 06/24/2020. - Started dexamethasone 6 mg PO daily on 06/24/2020 at first ED visit -> Continue 4 day course - Procalcitonin was 0.10 and he had already been on azithromycin, so admitting doctor did not choose to continue any antibiotics. -no supplemental oxygen required COVID-19 related diarrhea neg stool cultures and C. difficile, likely from Covid, resolved recommend follow up with pcp next week (2) Chest pain: Waxing/waning with Covid. No clear inciting factors. EKG from past 3 days is stable. Troponins negative on both ED visits. - Tylenol PRN for MSK pain - no further chest pain (3) Alcohol abuse: Reports he drinks a 12-pack of Darius Light "most" days. Denies hx of withdrawals or seizures. Reports sometimes doesn't drink that much, but is vague when asked how much he drinks on the lesser days. Not exhibiting signs or symptoms of alcohol withdrawal at this time (4) Hyperlipidemia: - Continue statin (5) GERD (gastroesophageal reflux disease): - Continue sucralfate Total Time Total Time Spent Total Time Spent (In Minutes): It required greater than 30 minutes to prepare this patient for discharge Discharge Plan Discharge Items Patient Disposition: Home - Self-Care Reason For Visit: COVID-19 PNEUMONIA Discharge Diagnosis: covid 19 pneumonia Activity: Per Instructions section Activity Comment: gradually increase activity Non-emergency contact: Primary Care Provider Call non-emergency contact if: you have any medication questions and your temperature is above 101.5 Follow-up/Referrals: Saúl Lynch MD [Primary Care Provider] - 07/17/20 8:30 am Diet: Regular Addtl Attending Provider Instructions: Home Isolation COVID-19 Instructions : since you are now > 10 days from you initial symptoms, you may not need to self isolate at home unless the people in your home are very young or very old or have health problems that weaken their immune system The following information about Home Isolation is from the CDC Website: https://www.cdc.gov/coronavirus/2019-ncov/hcp/glrnhgmk-ogabicg-kyxjyu.html Stay home except to get medical care People who are mildly ill with COVID-19 are able to isolate at home during their illness. You should restrict activities outside your home, except for getting medical care. Do not go to work, school, or public areas. Avoid using public transportation, ride-sharing, or taxis. People: As much as possible, you should stay in a specific room and away from other people in your home. Also, you should use a separate bathroom, if available. Animals: You should restrict contact with pets and other animals while you are sick with COVID-19, just like you would around other people. Although there have not been reports of pets or other animals becoming sick with COVID-19, it is still recommended that people sick with COVID-19 limit contact with animals until more information is known about the virus. When possible, have another member of your household care for your animals while you are sick. If you are sick with COVID-19, avoid contact with your pet, including petting, snuggling, being kissed or licked, and sharing food. If you must care for your pet or be around animals while you are sick, wash your hands before and after you interact with pets and wear a face mask. Call ahead before visiting your doctor If you have a medical appointment, call the healthcare provider and tell them that you have or may have COVID-19. This will help the healthcare providers office take steps to keep other people from getting infected or exposed. Wear a face mask You should wear a face mask when you are around other people that are not in your immediate family (e.g., sharing a room or vehicle) or pets and before you enter a healthcare providers office. If you are not able to wear a face mask (for example, because it causes trouble breathing). Cover your coughs and sneezes Cover your mouth and nose with a tissue when you cough or sneeze. Throw used tissues in a lined trash can. Immediately wash your hands with soap and water for at least 20 seconds or, if soap and water are not available, clean your hands with an alcohol-based hand [employer] that contains at least 60% alcohol. Clean your hands often Wash your hands often with soap and water for at least 20 seconds, especially after blowing your nose, coughing, or sneezing; going to the bathroom; and before eating or preparing food. If soap and water are not readily available, use an alcohol-based hand [employer] with at least 60% alcohol, covering all surfaces of your hands and rubbing them together until they feel dry. Soap and water are the best option if hands are visibly dirty. Avoid touching your eyes, nose, and mouth with unwashed hands. Avoid sharing personal household items You should not share dishes, drinking glasses, cups, eating utensils, towels, or bedding with other people or pets in your home. After using these items, they should be washed thoroughly with soap and water. Clean all high-touch surfaces everyday High touch surfaces include counters, tabletops, doorknobs, bathroom fixtures, toilets, phones, keyboards, tablets, and bedside tables. Also, clean any surfaces that may have blood, stool, or body fluids on them. Use a household cleaning spray or wipe, according to the label instructions. Labels contain instructions for safe and effective use of the cleaning product including precautions you should take when applying the product, such as wearing gloves and making sure you have good ventilation during use of the product. Monitor your symptoms Seek prompt medical attention if your illness is worsening (e.g., difficulty breathing).Beforeseeking care, call your healthcare provider and tell them that you have, or are being evaluated for, COVID-19. Put on a face mask before you enter the facility. These steps will help the healthcare providers office to keep other people in the office or waiting room from getting infected or exposed. Ask your healthcare provider to call the local or state health department. Persons who are placed under active monitoring or facilitated self-m onitoring should follow instructions provided by their local health department or occupational health professionals, as appropriate. When working with your local health department check their available hours. If you have a medical emergency and need to call 911, notify the dispatch personnel that you have, or are being evaluated for COVID-19. If possible, put on a face mask before emergency medical services arrive. Discontinuing home isolation Patients with confirmed COVID-19 should remain under home isolation precautions until the risk of secondary transmission to others is thought to be low. The decision to discontinue home isolation precautions should be made on a cotl-on-dwea basis, in consultation with healthcare providers and formerly [facility] and [facility] health departments. Pending Studies at Discharge: No Stand-Alone Forms: [employer], Smoking Cessation Medications and DC Order Prescriptions: Continued atorvastatin 80 mg tablet 80 mg PO HS RF: 0 sucralfate 1 gram tablet 1 g PO BID RF: 0 Changed dexamethasone 6 mg tablet 6 mg PO QAM Qty: 4 RF: 0 Discontinued azithromycin 250 mg tablet 250 mg PO HS RF: 0 Discharge Orders: Discharge Order (Routine); Ordered 06/30/20 Ordered By: Sander Gunn/Other Patient Handouts: COVID-19 Home Care, Treating Pneumonia Admission Data Admit Date/Time: 06/27/20 14:14 Attending Provider: Sander Corey Admit Provider: Gerald Pina Primary Care Provider: Saúl Lynch Other Interventions: Discharge Summary Assessment (RN) Last Done: 06/30/20 13:34 Coding Level of Care Code D/C Day Management >30 mins Diagnoses COVID-19 U07.1 Chest pain R07.9 Chest pain type: unspecified Alcohol abuse F10.10 Hyperlipidemia E78.5 GERD (gastroesophageal reflux disease) K21.9
== END 2020-06-30 14:33 | disposition home or self-care (01) ==
LOC: ED 10:55 → 2N 14:14 → SUATTDRO 14:14 → 2N 16:09